=== PATIENT | male | born 1945 | race Caucasian/White ===

== ENCOUNTER 2021-07-22 16:22 | Inpatient (IN) ==
[2021-07-22 18:03] LABS: Basophils % 0.4 %; Eosinophils # 0.3 K/mcL (0.0-0.6); Eosinophils % 3.5 %; Hematocrit 34.9 % (37.5-50.1); Hemoglobin 11.3 g/dL (12.9-16.9); Immature Granulocytes % 0.7 % (0-4); Lymphocytes # 1.3 K/mcL (0.6-4.6); Mean Corpuscular HGB Conc 32.4 g/dL (31.6-35.5); Mean Corpuscular Hemoglobin 30.1 pg (28.0-33.3); Mean Corpuscular Volume 92.8 fL (83.0-100.0); Monocytes # 1.1 K/mcL (0.0-1.3); Monocytes % 11.8 %; Neutrophils # 6.4 K/mcL (1.6-8.9); Platelet Count 177 K/mcL (140-400); Red Blood Count 3.76 M/mcL (4.19-5.50); Red Cell Distribution Width 13.2 % (11.5-14.5); Segmented Neutrophils % 69.6 %; White Blood Count 9.2 K/mcL (4.3-11.1)
[2021-07-22 18:18] LABS: INR 1.2; Prothrombin Time 13.2 Seconds (9.4-12.1)
[2021-07-22 18:21] LABS: Activated Partial Thrombo Time 31.7 Seconds (26.0-36.0)
[2021-07-22 18:34] LABS: Calcium 9.2 mg/dL (8.6-10.3); Magnesium 1.7 mg/dL (1.6-2.6); Potassium 4.4 mEq/L (3.5-5.1); Troponin I 0.03 ng/mL (< 0.04)
[2021-07-22] MEDS ORDERED: Naloxone 0.4 MG/ML INJ IVP PRN (20:25)
[2021-07-22] MEDS ORDERED: Ondansetron 4 MG/2 ML VIAL IVP PRN (20:35)
[2021-07-22] MEDS ORDERED: Melatonin 3 MG TABLET PO PRN (20:35)
[2021-07-22] MEDS ORDERED: Acetaminophen 325 MG TABLET PO PRN (20:35)
[2021-07-22] MEDS ORDERED: *HR* HYDROcodone/Acet 5/325 mg TABLET PO PRN (20:35)
[2021-07-22] MEDS ORDERED: Magnesium Sulfate 1 GM/102 ML PIGGYBACK IVPB ONE (20:41)
[2021-07-22] MEDS: Ringers Solution, Lactated 1,000 ML IVC SCH (22:52)
[2021-07-23] MEDS ORDERED: Perflutren Lipid Microsphere 1.3 ML in 0.9 % Sodium Chloride 8.7 ML IVP PRN (02:52)
[2021-07-23 06:01] LABS: Basophils % 0.5 %; Eosinophils # 0.2 K/mcL (0.0-0.6); Eosinophils % 2.8 %; Hematocrit 34.5 % (37.5-50.1); Hemoglobin 11.2 g/dL (12.9-16.9); Immature Granulocytes % 0.9 % (0-4); Lymphocytes % 12.9 %; Mean Corpuscular HGB Conc 32.5 g/dL (31.6-35.5); Mean Corpuscular Hemoglobin 30.3 pg (28.0-33.3); Mean Corpuscular Volume 93.2 fL (83.0-100.0); Mean Platelet Volume 9.9 fL (9.4-12.4); Monocytes # 1.2 K/mcL (0.0-1.3); Monocytes % 16.4 %; Neutrophils # 4.9 K/mcL (1.6-8.9); Platelet Count 159 K/mcL (140-400); Red Cell Distribution Width 13.2 % (11.5-14.5); Segmented Neutrophils % 66.5 %; White Blood Count 7.4 K/mcL (4.3-11.1)
[2021-07-23 06:13] LABS: INR 1.2; Prothrombin Time 13.1 Seconds (9.4-12.1)
[2021-07-23 06:20] LABS: Calcium 8.9 mg/dL (8.6-10.3); Chol/HDL Ratio 3.1 (0-4.9); Magnesium 1.8 mg/dL (1.6-2.6); Potassium 4.4 mEq/L (3.5-5.1)
[2021-07-23] MEDS: Ringers Solution, Lactated 1,000 ML IVC SCH (10:40)
[2021-07-23] MEDS ORDERED: *HR* Dextrose 50 % in Water (Syg) 50 ML SYRINGE IVP PRN (17:43)
[2021-07-23] MEDS ORDERED: D5% in Water 1,000 ML IVC PRN (17:43)
[2021-07-23] MEDS ORDERED: Dextrose Gel 15 GM/37.5 ML TUBE PO PRN ×2 (17:43)
[2021-07-23] MEDS: Insulin LISPRO 300 UNITS/3 ML VIAL SUBQ SCH ×3 (18:08→22:09)
[2021-07-23] MEDS: Insulin DETEMIR 100 UNIT/ML X5UNITS SUBQ SCH (22:09)
[2021-07-23] MEDS: rOPINIRole 1 MG TABLET PO SCH (22:14)
[2021-07-24 06:10] LABS: Potassium 4.2 mEq/L (3.5-5.1)
[2021-07-24 06:11] LABS: Calcium 8.8 mg/dL (8.6-10.3)
[2021-07-24 06:16] LABS: Estimated Average Glucose 206 mg/dl; Hemoglobin A1C 8.8 %
[2021-07-24] MEDS: BuPROPion SR (12 HR) 100 MG TABLET PO SCH (08:56)
[2021-07-24] MEDS: Insulin LISPRO 300 UNITS/3 ML VIAL SUBQ SCH ×3 (08:57→21:11)
[2021-07-24] MEDS: Venlafaxine XR (24 HR) 150 MG CAP.ER.24H PO SCH (08:57)
[2021-07-24] MEDS: Metoprolol XL (24 HR) Succ 25 MG TAB.ER.24H PO SCH (18:15)
[2021-07-24] MEDS: rOPINIRole 1 MG TABLET PO SCH (21:20)
[2021-07-24] MEDS: Insulin DETEMIR 100 UNIT/ML X5UNITS SUBQ SCH (21:20)
[2021-07-25 03:05] LABS: Calcium 8.5 mg/dL (8.6-10.3); Potassium 4.3 mEq/L (3.5-5.1)
[2021-07-25] MEDS: Venlafaxine XR (24 HR) 150 MG CAP.ER.24H PO SCH (08:11)
[2021-07-25] MEDS: BuPROPion SR (12 HR) 100 MG TABLET PO SCH (08:11)
[2021-07-25] MEDS: Metoprolol XL (24 HR) Succ 25 MG TAB.ER.24H PO SCH (08:11)
[2021-07-25] MEDS: Insulin LISPRO 300 UNITS/3 ML VIAL SUBQ SCH ×2 (08:33→12:15)
[2021-07-25 09:48] LABS: Magnesium 1.6 mg/dL (1.6-2.6); Phosphorous 3.7 mg/dL (2.7-4.5)
[2021-07-25 11:21] VITALS: BP 116/41; PULSE 91; TEMP 97.9; O2SAT 91
== END 2021-07-25 15:23 | disposition home or self-care (01) | DRG 178 ==
LOC: EMEROOARM 16:22 → 3NENU 16:22 → SUATTDRO 19:21 → 3NENU 20:22 → SUATTDRO 07-23 19:11
PROVIDERS: ADMIT Internal Medicine; ATTEND Family Medicine

== ENCOUNTER 2021-08-25 17:32 | Inpatient (IN) ==
[2021-08-25] MEDS ORDERED: Isovue-370 500 ML BOTTLE IVP ONE (17:46)
[2021-08-25 18:37] LABS: Basophils % 0.4 %; Eosinophils # 0.5 K/mcL (0.0-0.6); Eosinophils % 6.5 %; Hematocrit 29.5 % (37.5-50.1); Hemoglobin 9.7 g/dL (12.9-16.9); Immature Granulocytes % 0.7 % (0-4); Lymphocytes # 1.4 K/mcL (0.6-4.6); Mean Corpuscular HGB Conc 32.9 g/dL (31.6-35.5); Mean Corpuscular Volume 94.2 fL (83.0-100.0); Mean Platelet Volume 10.4 fL (9.4-12.4); Monocytes # 0.9 K/mcL (0.0-1.3); Monocytes % 12.4 %; Neutrophils # 4.1 K/mcL (1.6-8.9); Platelet Count 176 K/mcL (140-400); Red Blood Count 3.13 M/mcL (4.19-5.50); Red Cell Distribution Width 14.9 % (11.5-14.5); White Blood Count 6.9 K/mcL (4.3-11.1)
[2021-08-25 19:00] LABS: Albumin 2.7 g/dL (3.5-5.7); Albumin/Globulin Ratio 0.8 (1.1-2.2); Bilirubin,Total 0.4 mg/dL (0.3-1.0); Calcium 8.3 mg/dL (8.6-10.3); Globulin 3.3 g/dL (2.4-3.5)
[2021-08-25 20:30] LABS: Influenza A PCR Negative (Negative); Influenza B PCR Negative (Negative); Resp. Syncytial Virus PCR Negative (Negative)
[2021-08-25] MEDS ORDERED: cefTRIAXone 1,000 MG in Water for inj. (sterile) 10 ML IVP ONE (20:30)
[2021-08-25 20:31] LABS: SARS-CoV-2 by PCR (In House) Negative (Negative)
[2021-08-25] MEDS ORDERED: *HR* LORazepam 2 MG/ML VIAL IVP ONE (20:44)
[2021-08-25] MEDS ORDERED: Vancomycin 2,000 MG/520 ML IV.SOLN IVPB ONE (21:00)
[2021-08-25] MEDS ORDERED: Naloxone 0.4 MG/ML INJ IVP PRN (21:13)
[2021-08-25] MEDS ORDERED: *HR* Dextrose 50 % in Water (Syg) 50 ML SYRINGE IVP PRN (21:46)
[2021-08-25] MEDS ORDERED: Dextrose Gel 15 GM/37.5 ML TUBE PO PRN ×2 (21:46)
[2021-08-25] MEDS ORDERED: D5% in Water 1,000 ML IVC PRN (21:46)
[2021-08-25] MEDS: rOPINIRole 0.25 MG TABLET PO SCH (22:42)
[2021-08-26] MEDS ORDERED: Piperacillin/Tazobactam 3.375 GM in 0.9 % Sodium Chloride Mini Bag 100 ML IVPB SCH (06:00)
[2021-08-26 07:52] LABS: Basophils % 0.5 %; Eosinophils # 0.4 K/mcL (0.0-0.6); Eosinophils % 4.4 %; Hematocrit 33.2 % (37.5-50.1); Hemoglobin 10.8 g/dL (12.9-16.9); Immature Granulocytes % 0.6 % (0-4); Lymphocytes # 1.2 K/mcL (0.6-4.6); Lymphocytes % 14.9 %; Mean Corpuscular HGB Conc 32.5 g/dL (31.6-35.5); Mean Corpuscular Hemoglobin 30.6 pg (28.0-33.3); Mean Corpuscular Volume 94.1 fL (83.0-100.0); Mean Platelet Volume 10.2 fL (9.4-12.4); Monocytes # 0.8 K/mcL (0.0-1.3); Monocytes % 10.5 %; Neutrophils # 5.5 K/mcL (1.6-8.9); Platelet Count 219 K/mcL (140-400); Red Blood Count 3.53 M/mcL (4.19-5.50); Segmented Neutrophils % 69.1 %; White Blood Count 7.9 K/mcL (4.3-11.1)
[2021-08-26 08:04] LABS: % Iron Saturation 11 % (20-55); BUN/Creatinine Ratio 16 (6-26); Blood Urea Nitrogen 21 mg/dL (8-23); Calcium 8.8 mg/dL (8.6-10.3); Carbon Dioxide 27 mEq/L (23-29); Chloride 100 mEq/L (98-107); Glucose 215 mg/dL (70-105); Iron 20 mcg/dL (65-175); Magnesium 1.7 mg/dL (1.6-2.6); Osmolality,Calculated 287 (280-300); Phosphorous 3.3 mg/dL (2.7-4.5); Potassium 4.4 mEq/L (3.5-5.1); Sodium 134 mEq/L (136-145); Transferrin 129 mg/dL (203-362); eGFR For African Americans > 60 (> 60); eGFR For Non-African Americans 53 (> 60)
[2021-08-26 08:19] LABS: Ferritin 608 ng/mL (20-250)
[2021-08-26 08:25] LABS: Folate 5.8 ng/mL (3.0-16.0)
[2021-08-26] MEDS: Insulin LISPRO 300 UNITS/3 ML VIAL SUBQ SCH ×4 (08:38→20:53)
[2021-08-26] MEDS: Venlafaxine XR (24 HR) 150 MG CAP.ER.24H PO SCH (08:39)
[2021-08-26] MEDS: BuPROPion SR (12 HR) 100 MG TABLET PO SCH (08:39)
[2021-08-26] MEDS: Petrolatum, white 28.35 GM TUBE TP SCH (08:39)
[2021-08-26] MEDS ORDERED: Vancomycin 2,000 MG/520 ML IV.SOLN IVPB SCH ×2 (10:00→21:00)
[2021-08-26] MEDS ORDERED: *HR* LORazepam 2 MG/ML VIAL IVP PRN ×3 (13:54)
[2021-08-26] MEDS ORDERED: *HR* LORazepam 2 MG/ML VIAL IM PRN ×3 (16:03)
[2021-08-26] MEDS: Folic Acid 1 MG TABLET PO SCH (18:17)
[2021-08-26] MEDS: Vitamin B Complex/Vit C/Vit E 1 EACH TABLET PO SCH (18:17)
[2021-08-26] MEDS: Thiamine (B-1) 100 MG TABLET PO SCH (18:18)
[2021-08-26] MEDS: Doxycycline 100 MG CAPSULE PO SCH (20:52)
[2021-08-26] MEDS: rOPINIRole 0.25 MG TABLET PO SCH (20:52)
[2021-08-27 06:50] LABS: Hematocrit 29.7 % (37.5-50.1); Hemoglobin 9.7 g/dL (12.9-16.9); Mean Corpuscular HGB Conc 32.7 g/dL (31.6-35.5); Mean Corpuscular Hemoglobin 30.7 pg (28.0-33.3); Mean Platelet Volume 9.7 fL (9.4-12.4); Platelet Count 224 K/mcL (140-400); Red Blood Count 3.16 M/mcL (4.19-5.50); Red Cell Distribution Width 14.7 % (11.5-14.5); White Blood Count 6.5 K/mcL (4.3-11.1)
[2021-08-27 07:17] LABS: BUN/Creatinine Ratio 16 (6-26); Blood Urea Nitrogen 20 mg/dL (8-23); Calcium 8.4 mg/dL (8.6-10.3); Carbon Dioxide 25 mEq/L (23-29); Chloride 101 mEq/L (98-107); Glucose 239 mg/dL (70-105); Magnesium 1.6 mg/dL (1.6-2.6); Osmolality,Calculated 288 (280-300); Potassium 4.1 mEq/L (3.5-5.1); Sodium 134 mEq/L (136-145); eGFR For African Americans > 60 (> 60); eGFR For Non-African Americans 56 (> 60)
[2021-08-27 07:18] LABS: Thyroid Stimulating Hormone 3.176 mcIU/mL (0.340-5.600)
[2021-08-27] MEDS: Thiamine (B-1) 100 MG TABLET PO SCH (09:16)
[2021-08-27] MEDS: BuPROPion SR (12 HR) 100 MG TABLET PO SCH (09:16)
[2021-08-27] MEDS: Venlafaxine XR (24 HR) 150 MG CAP.ER.24H PO SCH (09:16)
[2021-08-27] MEDS: Doxycycline 100 MG CAPSULE PO SCH ×2 (09:16→23:22)
[2021-08-27] MEDS: Folic Acid 1 MG TABLET PO SCH (09:17)
[2021-08-27] MEDS: Vitamin B Complex/Vit C/Vit E 1 EACH TABLET PO SCH (09:17)
[2021-08-27] MEDS: Insulin LISPRO 300 UNITS/3 ML VIAL SUBQ SCH ×4 (09:18→20:41)
[2021-08-27] MEDS: Petrolatum, white 28.35 GM TUBE TP SCH (16:53)
[2021-08-27] MEDS: rOPINIRole 0.25 MG TABLET PO SCH (23:22)
[2021-08-27] MEDS: Insulin DETEMIR 100 UNIT/ML X5UNITS SUBQ SCH (23:22)
[2021-08-28 07:31] LABS: Hematocrit 31.7 % (37.5-50.1); Hemoglobin 10.1 g/dL (12.9-16.9); Mean Corpuscular HGB Conc 31.9 g/dL (31.6-35.5); Mean Corpuscular Hemoglobin 30.1 pg (28.0-33.3); Mean Corpuscular Volume 94.3 fL (83.0-100.0); Mean Platelet Volume 9.7 fL (9.4-12.4); Platelet Count 243 K/mcL (140-400); Red Blood Count 3.36 M/mcL (4.19-5.50); Red Cell Distribution Width 14.9 % (11.5-14.5)
[2021-08-28 07:47] LABS: BUN/Creatinine Ratio 17 (6-26); Blood Urea Nitrogen 21 mg/dL (8-23); Calcium 8.7 mg/dL (8.6-10.3); Carbon Dioxide 24 mEq/L (23-29); Chloride 102 mEq/L (98-107); Glucose 262 mg/dL (70-105); Magnesium 1.7 mg/dL (1.6-2.6); Osmolality,Calculated 286 (280-300); Potassium 4.4 mEq/L (3.5-5.1); Sodium 132 mEq/L (136-145); eGFR For African Americans > 60 (> 60); eGFR For Non-African Americans 58 (> 60)
[2021-08-28] MEDS: Insulin LISPRO 300 UNITS/3 ML VIAL SUBQ SCH ×4 (09:00→20:16)
[2021-08-28] MEDS: BuPROPion SR (12 HR) 100 MG TABLET PO SCH (09:06)
[2021-08-28] MEDS: Doxycycline 100 MG CAPSULE PO SCH ×2 (09:07→20:17)
[2021-08-28] MEDS: Thiamine (B-1) 100 MG TABLET PO SCH (09:07)
[2021-08-28] MEDS: Folic Acid 1 MG TABLET PO SCH (09:07)
[2021-08-28] MEDS: Vitamin B Complex/Vit C/Vit E 1 EACH TABLET PO SCH (09:07)
[2021-08-28] MEDS: Venlafaxine XR (24 HR) 150 MG CAP.ER.24H PO SCH (09:08)
[2021-08-28] MEDS: rOPINIRole 0.25 MG TABLET PO SCH (20:16)
[2021-08-28] MEDS: Insulin DETEMIR 100 UNIT/ML X5UNITS SUBQ SCH (20:17)
[2021-08-28] MEDS: Melatonin 3 MG TABLET PO PRN (20:17)
[2021-08-29] MEDS: Folic Acid 1 MG TABLET PO SCH (07:33)
[2021-08-29] MEDS: Thiamine (B-1) 100 MG TABLET PO SCH (07:33)
[2021-08-29] MEDS: Vitamin B Complex/Vit C/Vit E 1 EACH TABLET PO SCH (07:33)
[2021-08-29] MEDS: Doxycycline 100 MG CAPSULE PO SCH ×2 (07:33→21:08)
[2021-08-29] MEDS: Insulin LISPRO 300 UNITS/3 ML VIAL SUBQ SCH ×4 (08:00→21:09)
[2021-08-29 17:20] LABS: Bilirubin,Urine Negative (Negative); Blood,Urine Negative (Negative); Clarity,Urine Turbid (Clear); Color,Urine Yellow (Yellow); Glucose,Urine (UA) Normal (Normal); Ketones,Urine Negative (Negative); Leukocyte Esterase,Urine Moderate (Negative); Nitrite,Urine Negative (Negative); PH,Urine 5.5 pH Units (5.0-8.0); Protein,Urine Trace mg/dL (Neg-Trace); Specific Gravity,Urine 1.023 (1.010-1.025); Squamous Epithelial Cell,Urine Moderate per hpf (None-Few); Urobilinogen,Urine Normal (Normal); WBC,Urine 30-50 per hpf (0-3)
[2021-08-29] MEDS: Miconazole 2% ointment 141 APPL/141 GM TUBE TP SCH (17:57)
[2021-08-29] MEDS: rOPINIRole 0.25 MG TABLET PO SCH (21:08)
[2021-08-29] MEDS: Insulin DETEMIR 100 UNIT/ML X5UNITS SUBQ SCH (21:09)
[2021-08-30 05:29] LABS: Hematocrit 31.9 % (37.5-50.1); Hemoglobin 10.3 g/dL (12.9-16.9); Mean Corpuscular HGB Conc 32.3 g/dL (31.6-35.5); Mean Corpuscular Hemoglobin 30.4 pg (28.0-33.3); Mean Corpuscular Volume 94.1 fL (83.0-100.0); Mean Platelet Volume 9.3 fL (9.4-12.4); Platelet Count 266 K/mcL (140-400); Red Blood Count 3.39 M/mcL (4.19-5.50); Red Cell Distribution Width 14.6 % (11.5-14.5); White Blood Count 8.1 K/mcL (4.3-11.1)
[2021-08-30 05:50] LABS: Alanine Aminotransferase 15 Units/L (7-52); Albumin 2.7 g/dL (3.5-5.7); Albumin/Globulin Ratio 0.8 (1.1-2.2); Alkaline Phosphatase 71 Units/L (34-104); Aspartate Amino Transferase 17 Units/L (13-39); BUN/Creatinine Ratio 13 (6-26); Bilirubin,Total 0.4 mg/dL (0.3-1.0); Blood Urea Nitrogen 15 mg/dL (8-23); Calcium 8.6 mg/dL (8.6-10.3); Carbon Dioxide 29 mEq/L (23-29); Chloride 102 mEq/L (98-107); Globulin 3.4 g/dL (2.4-3.5); Glucose 154 mg/dL (70-105); Magnesium 1.7 mg/dL (1.6-2.6); Osmolality,Calculated 284 (280-300); Potassium 4.5 mEq/L (3.5-5.1); Sodium 135 mEq/L (136-145); Total Protein 6.1 g/dL (6.4-8.9); eGFR For African Americans > 60 (> 60); eGFR For Non-African Americans > 60 (> 60)
[2021-08-30] MEDS: Vitamin B Complex/Vit C/Vit E 1 EACH TABLET PO SCH (09:14)
[2021-08-30] MEDS: Folic Acid 1 MG TABLET PO SCH (09:14)
[2021-08-30] MEDS: Insulin LISPRO 300 UNITS/3 ML VIAL SUBQ SCH ×4 (09:14→21:31)
[2021-08-30] MEDS: Thiamine (B-1) 100 MG TABLET PO SCH (09:14)
[2021-08-30] MEDS: Doxycycline 100 MG CAPSULE PO SCH ×2 (09:14→21:29)
[2021-08-30] MEDS: Miconazole 2% ointment 141 APPL/141 GM TUBE TP SCH (09:15)
[2021-08-30] MEDS: rOPINIRole 0.25 MG TABLET PO SCH (21:28)
[2021-08-30] MEDS: Melatonin 3 MG TABLET PO PRN (21:29)
[2021-08-30] MEDS: Insulin DETEMIR 100 UNIT/ML X5UNITS SUBQ SCH (21:30)
[2021-08-31 08:07] VITALS: BP 123/75; PULSE 89; TEMP 98.2; O2SAT 93
[2021-08-31] MEDS: Doxycycline 100 MG CAPSULE PO SCH (10:16)
[2021-08-31] MEDS: Vitamin B Complex/Vit C/Vit E 1 EACH TABLET PO SCH (10:16)
[2021-08-31] MEDS: Thiamine (B-1) 100 MG TABLET PO SCH (10:16)
[2021-08-31] MEDS: Folic Acid 1 MG TABLET PO SCH (10:16)
[2021-08-31] MEDS: Insulin LISPRO 300 UNITS/3 ML VIAL SUBQ SCH (10:17)
[2021-08-31] MEDS: Miconazole 2% ointment 141 APPL/141 GM TUBE TP SCH (10:22)
== END 2021-08-31 13:35 | disposition home health service (06) | DRG 592 ==
LOC: EMEROOARM 17:32 → 3ANU 17:32 → SUATTDRO 21:13 → 3ANU 21:50
PROVIDERS: ADMIT Student in an Organized Health Care Education/Training Program; ATTEND Internal Medicine